=== PATIENT | female | born 1970 | race Caucasian/White ===

== ENCOUNTER 2024-06-14 10:52 | Outpatient (CLI) | payer BC, SELFPAY ==
[2024-06-16 04:22] LABS: HPV Source Cervical; HPV, High Risk by TMA Not Detected
[2024-06-21 14:33] LABS: Pap Test Reviewed by Path Done
== END 2024-06-14 10:53 | disposition home or self-care (01) ==
PROVIDERS: Visit Provider Physician Assistant
DX: Z12.4 Encounter for screening for malignant neoplasm of cervix (principal); Z13.6 Encounter for screening for cardiovascular disorders; Z13.1 Encounter for screening for diabetes mellitus; Z13.29 Encounter for screening for other suspected endocrine disorder; Z11.51 Encounter for screening for human papillomavirus (HPV)
CPT/HCPCS: 80061; 82947; 84443; 87624; 87625; 88141; 88142

== ENCOUNTER 2024-07-18 08:58 | Outpatient (CLI) | payer BC, SELFPAY ==
--- NOTE | 2024-07-18 10:35 | P.ANES_ITS ---
Anesthesia Charges Start Date/Time Anesthesia Start Date: 07/18/24 Anesthesia Start Time: 09:51 Stop Date/Time Anesthesia Stop Date: 07/18/24 Anesthesia Stop Time: 10:32 Coding CPT Codes CPT Codes: ABDON LWR INTST NDMN NOS - [id number] ([id number]) P1 - NORMAL HEALTHY PATIENT, QK - COIL ASSEMBLER 2-4 CNCRNT ANES PROC, QX - MANAGER RESPIRATORY CARE SVC W/ MED DIRECTION
--- NOTE | 2024-07-18 10:35 | W.ANESCHARGE ---
Anesthesia Charges Start Date/Time Anesthesia Start Date: 07/18/24 Anesthesia Start Time: 09:51 Stop Date/Time Anesthesia Stop Date: 07/18/24 Anesthesia Stop Time: 10:32 Coding CPT Codes CPT Codes: ABDON LWR INTST NDOR NOS - [id number] ([id number]) P1 - NORMAL HEALTHY PATIENT, QK - NIGHT PATROL INSPECTOR 2-4 CNCRNT ANES PROC, QX - COOK SOUP SVC W/ MED DIRECTION
--- NOTE | 2024-07-18 10:44 | P.ANES_ITS ---
Anesthesia Charges Start Date/Time Anesthesia Start Date: 07/18/24 Anesthesia Start Time: 09:51 Stop Date/Time Anesthesia Stop Date: 07/18/24 Anesthesia Stop Time: 10:32 Coding CPT Codes CPT Codes: ABDON LWR INTST NDRI NOS - [id number] ([id number]) P1 - NORMAL HEALTHY PATIENT, QK - TELEPHONE MESSENGER 2-4 CNCRNT ANES PROC, QX - INPATIENT NURSING AIDE SVC W/ MED DIRECTION
--- NOTE | 2024-07-18 10:44 | W.ANESCHARGE ---
Anesthesia Charges Start Date/Time Anesthesia Start Date: 07/18/24 Anesthesia Start Time: 09:51 Stop Date/Time Anesthesia Stop Date: 07/18/24 Anesthesia Stop Time: 10:32 Coding CPT Codes CPT Codes: ABDON LWR INTST NDND NOS - [id number] ([id number]) P1 - NORMAL HEALTHY PATIENT, QK - TOOL DISTRIBUTOR 2-4 CNCRNT ANES PROC, QX - WAFER PRODUCTION LEAD WORKER SVC W/ MED DIRECTION
== END 2024-07-18 08:59 | disposition home or self-care (01) ==
PROVIDERS: Visit Provider Surgery
DX: Z12.11 Encounter for screening for malignant neoplasm of colon (principal); D12.2 Benign neoplasm of ascending colon; D12.5 Benign neoplasm of sigmoid colon; K57.30 Diverticulosis of large intestine without perforation or abscess without bleeding
CPT/HCPCS: 00811; 45385; 88305; J2704

== ENCOUNTER 2024-09-16 13:34 | Outpatient (CLI) | payer BC, SELFPAY ==
--- NOTE | 2024-09-16 13:40 | CRLHL7_ITS ---
For Patients: As a result of the Century Cures Act, medical imaging exams and procedure reports are released immediately into your electronic medical record. You may view this report before your referring provider. If you have questions, please contact your health care provider. INDICATION: BILATERAL SCREENING MAMMOGRAM, ASYMPTOMATIC 53 Y/O FEMALE COMPARISON: 04/29/2021, 11/22/2019, 07/17/2014 TECHNIQUE: Digital mammogram in CC and MLO projections including computer-aided detection (CAD) and tomosynthesis. BREAST COMPOSITION: The breasts are heterogeneously dense, which may obscure small masses. FINDINGS: No suspicious findings. ASSESSMENT: BI-RADS 2 Benign RECOMMENDATION: Annual screening mammogram. A lay language report of this examination will be provided to the patient. Dictated by: Kamar Ortiz MD @ 09/18/2024 09:52:27 (Electronically Signed)
== END 2024-09-16 13:35 | disposition home or self-care (01) ==
LOC: MAMMO 13:35
PROVIDERS: Visit Provider Physician Assistant
DX: Z12.31 Encounter for screening mammogram for malignant neoplasm of breast (principal); R92.333 Mammographic heterogeneous density, bilateral breasts
CPT/HCPCS: 77063; 77067